=== PATIENT | female | born 1990 | race Caucasian/White ===

== ENCOUNTER 2017-12-11 10:32 | Emergency (ER) | payer BC ==
--- NOTE | 2017-12-11 13:07 | US ---
Indication: decr mvmt. GDM on insulin Comparison: None available. Technique: Real-time ultrasound was performed through the pelvis. Findings: Examination limited by habitus. There is a single living fetus in cephalic presentation. Fundal placenta. The placenta is not previa. There are no adnexal masses or cysts evident. The cervix is not visualized. Question presence of amniotic band within the right upper quadrant. Measurements and calculations: Fetus has a composite sonographic age of 33 weeks 5 days. This calculation is based on the biparietal diameter, head circumference, abdominal circumference, and femur length. Estimated heart rate 144.4 beats per min. ARAMIS measures approximately 20.3 cm, high normal. The study was performed for the emergent evaluation of decreased movement, and the whole anatomic survey of the fetus was not performed during this examination. Impression: Single living fetus with a composite sonographic age of 33 weeks 5 days. Estimated heart rate 144.4 beats per min. ARAMIS measures approximately 20.3 cm, high normal. Question presence of amniotic band within the right upper quadrant. Recommend correlation with findings from whole anatomic survey of the fetus.
--- NOTE | 2017-12-11 20:09 | OBHP ---
Datetime: 12/11/2017 11:31 IP Adm Impression: , intrauterine ; No Active Labor IP Admit Plan: Discharge home Admit Comment, IP Provider: Patient is a 27 y.o. F 33 weeks and 6 days (due date: 01/23/18) (LMP : 04/18/17) with gestation diabetes who presents today for decreased movement. Patient said she n oticed less movement last night and this morning felt the baby kick once at 6:30 am. Patient wa s started on insulin two months ago, but did not take it this morning because she ate a small breakfa st. Patient is visiting from [place] and has a flight back tomorrow. Patient is not having any abdomi nal pain or bleeding or discharge from the vagina. Patient denies any chest pain, shortness of breath , nausea or vomiting. PMHx: none Psurg: None OBHx: G1PO, care in [place]- does not have records with her GynHx: menstruation at 12, regular, 5-6 days no hx of fibroids or ovarian cysts no hx of STDs NKDA Meds: PNV - QD; Humalog 42U breakfast, 32 U dinner; Humulin 60 U breakfast, 18 U lunch, 43 U dinne r Famhx: none Social hx: denies tobacco, alcohol, drugs A_P: 27 y/o F 33 weeks and 6 days (due date: 01/23/18) (LMP: 04/18/17) with gestational diabetes who presents today for decreased movement. 1. stable, afebrile 2. NST reactive 3. continue diabetes management as per OBGYN 4. no future travel during this 5. stable for discharge 6. patient to return to ED immediately if decreased movements, vaginal bleeding/discharge, f omar, chills 7. discussed with attending Elizabeth Haines, PGY1 Attending Note: Patient was seen and evaluated with the Resident. I agree with the above documentation with the sandoval villafuerte clarification: 1) A2 GDM. F.S. 167 mg/dL - most likely due to patient small breakfast of "some bread" and coffee, and did not take insulin 2) Limited Ob ultrasound/BPP: 33w 5d, cephalic, fundal placenta. BPS 8/8; noted for ARAMIS 20.3 cm (h igh normal) and amnionic band in RUQ. All of this was discussed with the patient: highly recommend F /U with regular Ob as soon as she gets back to [place]. Patient expressed an understanding and agrees . Assessment: 27 y.o. P0, 33w 6d, decreased FM - improved; good FM since on L_D. A2 GDM - ? control. BPP and NST reassuring. Category 1 tracing. Patient is clinically stable. Plan: 1) Discharge home 2) Reviewed S/S PTL Pelvic Type - PN: Not Done Extremities - PN: Normal Abdomen - PN: Normal Back - PN: Normal Breast - PN: Not Done Lungs - PN: Normal Heart - PN: Normal Thyroid - PN: Not Done HEENT - PN: Normal General - PN: Normal FHR - Baseline A Provider: 140 Contraction Comments Provider: none Comments, ACOG Physical Exam: Abdomen: Obese. Gravid. Soft. Fundal height 36 cm Gestation - Est Wks by US: 33w 6d EGA AdmitDate IP: 31.3 Vital Signs Provider: Reviewed; Within Normal Limits IP Chief Complaint: Decreased movement NICHD Variability Prov Fetus A: Moderate 6-25bpm NICHD Accel Fetus A IP Provider: [id number] FHR Category Provider Fetus A: Category I NICHD Decel Fetus A IP Provider: None Dilatation, Provider: deferred Genitourinary Exam: Not Done DTRs - PN: Not Done
== END 2017-12-11 15:57 | disposition home or self-care (01) ==
LOC: C.EROB 10:32
DX: O36.8130 Decreased fetal movements, third trimester, not applicable or unspecified (principal); Z3A.33 33 weeks gestation of pregnancy